=== PATIENT | female | born 2000 | race Caucasian/White ===

== ENCOUNTER 2022-01-05 23:13 | Emergency (ER) | payer BC ==
[~2022-01-05] VITALS: Ht 175.3 cm; Wt 59.0 kg
[2022-01-06 00:04] VITALS: BP 137/92
--- NOTE | 2022-01-06 00:11 | NUR ---
TO LOBBY FOLLOWING TRIAGE
--- NOTE | 2022-01-06 00:28 | NUR ---
Dr. Sheffield examining patient.
--- NOTE | 2022-01-06 01:11 | NUR ---
Patient left with D/C papers.
== END 2022-01-06 01:11 | disposition home or self-care (01) ==
LOC: MED 23:13
DX: S09.90XA Unspecified injury of head, initial encounter (principal); W22.8XXA Striking against or struck by other objects, initial encounter; Y93.89 Activity, other specified; Y92.89 Other specified places as the place of occurrence of the external cause; Y99.8 Other external cause status
CPT/HCPCS: 99281